=== PATIENT | female | born 2000 | race African-American/Black ===

== ENCOUNTER 2021-04-09 14:12 | Emergency (ER) | payer SELFPAY ==
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
[2021-04-09 19:21] VITALS: BP 141/79
== END 2021-04-09 19:22 | disposition home or self-care (01) ==
LOC: ED 14:12
DX: T74.21XA Adult sexual abuse, confirmed, initial encounter (principal); X58.XXXA Exposure to other specified factors, initial encounter; Y93.89 Activity, other specified; Y92.89 Other specified places as the place of occurrence of the external cause; Y99.8 Other external cause status
CPT/HCPCS: 99282